=== PATIENT | male | born 1940 | race Two or more races ===

== ENCOUNTER 2018-10-08 00:31 | Inpatient (IN) | payer MEDICARE, OTHER ==
[2018-10-08] MEDS ORDERED: Permethrin 5% CREAM TOP ONE (02:11)
[2018-10-08] MEDS ORDERED: Permethrin 1% Kit 59 ML BOTTLE TOP ONE (02:12)
--- NOTE | 2018-10-08 02:48 | ED PDOC ---
HPI: Altered Mental Status Time Seen by Provider: 10/08/18 00:39 Chief Complaint (Nursing): Altered Mental Status Chief Complaint (Provider): Altered Mental Status History Per: Patient History/Exam Limitations: Clinical Condition Associated Symptoms: Confused Additional Complaint(s): 78 y/o male brought in by EMS for evaluation of AMS. [place] [address] [place]. He appeared confused and disoriented although he can tell his name and date of . Patient lived in [place] with his daughter. A bus ticket was found that tells he took a bus from [place]. He is unable to get recollection of events. Patient is in poor state of hygiene and offers no complaints at this time. Patient is unable to provide history due to clinical condition. PMD: unknown Past Medical History Reviewed: Historical Data, Nursing Documentation, Vital Signs Vital Signs: Last Vital Signs Temp 98 F 10/08/18 00:33 Pulse 109 H 10/08/18 00:33 Resp 18 10/08/18 00:33 BP 128/70 10/08/18 00:33 Pulse Ox 98 10/08/18 00:33 - Medical History Other PMH: Unknown - Surgical History Other surgeries: Unknown - Family History Family History: States: Unknown Family Hx - Social History Current smoker - smoking cessation education provided: No (Unknown) Alcohol: None (Unknown) Drugs: Denies (Unknown) - Allergies Allergies/Adverse Reactions: Allergies Allergy/AdvReac Type Severity Reaction Status Date / Time Unobtainable Allergy Verified 10/08/18 00:33 Review of Systems Review Of Systems: ROS cannot be obtained secondary to pt's inabilty to answer questions. Physical Exam - Reviewed Nursing Documentation Reviewed: Yes Vital Signs Reviewed: Yes - Physical Exam Appears: Positive for: Non-toxic, No Acute Distress (in poor state of hygiene) Head Exam: Positive for: ATRAUMATIC, NORMOCEPHALIC Skin: Positive for: Normal Color, Warm, Dry Eye Exam: Positive for: Normal appearance, EOMI, PERRL Neck: Positive for: Normal, Painless ROM, Supple Cardiovascular/Chest: Positive for: Regular Rate, Rhythm. Negative for: Murmur Respiratory: Positive for: Normal Breath Sounds. Negative for: Wheezing Gastrointestinal/Abdominal: Positive for: Normal Exam, Soft. Negative for: Tenderness Back: Positive for: Normal Inspection. Negative for: L CVA Tenderness, R CVA Tenderness Extremity: Positive for: Normal ROM. Negative for: Tenderness, Pedal Edema Neurologic/Psych: Positive for: Alert, Oriented (x1 to person) - Laboratory Results Result Diagrams: 10/08/18 04:35 10/08/18 04:35 - ECG O2 Sat by Pulse Oximetry: 98 (RA) Pulse Ox Interpretation: Normal Medical Decision Making Medical Decision Makin 78 y/o male brought in for AMS --Labs --EKG --CT cervical spine --CT head --Eimite ordered for body lice treatment --senior care reports patient has bed bugs. --HPD contacted to assess further family contact info 0217 CT head findings: Right frontal subgaleal soft tissue hematoma. There is normal configuration of sella turcica. There are no intra or extra- axial collections. There is no mass effect or midline shift. There is no evidence of hematoma formation. No hydrocephalus is present. The ventricles are symmetrical. No abnormal calcifications are present. There is diffuse age-appropriate cerebellar and cerebral atrophy with proportion ally dilated ventricles and cortical sulci. There are bilateral periventricular and subcortical white matter hypolucencies compatible with mild chronic microvascular disease. Otherwise, no significant focal abnormalities are seen either in the posterior fossa or supratentorial compartment. IMPRESSION: 1. Age-appropriate cerebellar and cerebral atrophy. 2. Mild chronic microvascular disease. 3. No evidence of acute intracranial pathology. 0220 CT cervical spine Findings: Mild osteopenia of the bones. Straightening of the cervical lordosis, probably muscular spasm and pain. Grade 1 anterolisthesis of C2 on C3. There are diffuse spondylotic changes. Findings are demonstrated by disc space narrowing, osteophyte formation and degenerative endplate changes. Facet joint arthropathy is noted. No fracture or dislocation is seen. No aggressive bone lesion is noted. Moderate multilevel degenerative disc disease more prominent from C3-C7. Impression: Spondylosis. Multilevel facet joint arthropathy. No acute bone pathology. 0609 Labs reviewed and show no significant clinical abnormality with exception to urine indicative of UTI. Patient still appears confused, unclear if this is his baseline. Patient likely has baseline dementia. D contacted [place] police for family contact information but were not able to obtain any info. Patient will be admitted as he is unsafe to be discharged home. Case referred to Dr. Forde. Diagnosis is AMS and social hold. Scribe Attestation: Documented by Altagracia Rivera, acting as a scribe for Magan Martinez MD. Provider Scribe Attestation: All medical record entries made by the Scribe were at my direction and personally dictated by me. I have reviewed the chart and agree that the record accurately reflects my personal performance of the history, physical exam, medical decision making, and the department course for this patient. I have also personally directed, reviewed, and agree with the discharge instructions and disposition. Disposition - Clinical Impression Clinical Impression: Altered mental status - Patient ED Disposition Is Patient to be Admitted: Yes Discussed With : Mindy Bonner Seman - Disposition Disposition Time: 06:09 Condition: FAIR - Pt Status Changed To: Hospital Disposition Of: Inpatient - Admit Certification Admit to Inpatient:: After my assessment, the patient will require ho spitalization for at least two midnights. This is because of the severity of symptoms shown, intensity of services needed, and/or the medical risk in this patient being treated as an outpatient.
[2018-10-08 04:54] LABS: PROTHROMBIN TIME 11.8 Seconds (9.8-13.1)
[2018-10-08 04:57] LABS: PARTIAL THROMBOPLASTIN TIME 27.5 Seconds (25.6-37.1)
[2018-10-08 04:59] LABS: ALB/GLOB RATIO 0.9 (1.0-2.1); ALBUMIN 3.4 g/dL (3.5-5.0); CALCIUM 8.7 mg/dL (8.4-10.2)
[2018-10-08 05:13] LABS: TROPONIN I 0.025 ng/mL (0.00-0.120)
[2018-10-08 05:15] LABS: BARBITURATES, UR NEGATIVE (NEGATIVE); BENZODIAZEPINES, UR NEGATIVE (NEGATIVE); OPIATES, UR NEGATIVE (NEGATIVE); PHENCYCLIDINE, UR NEGATIVE (NEGATIVE)
[2018-10-08 05:28] LABS: BASO % 0.5 % (0.0-2.0); EOS % 0.4 % (0.0-4.0); HEMOGLOBIN 10.1 g/dL (12.0-18.0); LYMPH % 20.5 % (20.0-40.0); MEAN CELL VOLUME 89.7 fl (80.0-94.0); MEAN CORPUSCULAR HEMOGLOBIN 29.8 pg (27.0-31.0); MEAN CORPUSCULAR HGB CONC 33.2 g/dL (33.0-37.0); MEAN PLATELET VOLUME 7.2 fl (7.2-11.7); MONO # 0.5 K/uL (0.0-0.8); MONO % 11.5 % (0.0-10.0); NEUT # 3.1 K/uL (1.8-7.0); NEUT % 67.1 % (50.0-75.0); NRBC % 0.1 % (0.0-0.0); RBC 3.41 Mil/uL (4.40-5.90); RED CELL DISTRIBUTION WIDTH 17.5 % (11.5-14.5); WHITE BLOOD COUNT 4.6 K/uL (4.8-10.8)
--- NOTE | 2018-10-08 07:08 | CP.PCM.HP ---
History of Present Illness - History of Present Illness History of Present Illness: CC: AMS, and Wandering History of Present Illness: History from the Chart and ER Attending A 78 y/o male brought in by EMS for evaluation of AMS. [place] [address] [place]. He appeared confused and disoriented although he can tell his name and date of . Patient lived in [place] with his daughter. A bus ticket was found that tells he took a bus from [place]. He is unable to get recollection of events. Patient is in poor state of hygiene and offers no complaints at this time. Present on Admission - Present on Admission Any Indicators Present on Admission: No Review of Systems - Review of Systems All systems: reviewed and no additional remarkable complaints except Review of Systems: as pr HPI Past Patient History - Past Medical History & Family History Past Medical History?: No Past Family History: Reviewed and not pertinent - Past Social History Smoking Status: Never Smoked Alcohol: Social (Unknown) Drugs: Cannabis - PSYCHIATRIC Hx Substance Use: (Unknown) - SURGICAL HISTORY Hx Surgeries: (Unknown) - ANESTHESIA Hx Anesthesia: (Unknown) Meds Allergies/Adverse Reactions: Allergies Allergy/AdvReac Type Severity Reaction Status Date / Time Unobtainable Allergy Verified 10/08/18 00:33 Physical Exam - Constitutional Appears: In Acute Distress, Unkempt, Chronically Ill - Head Exam Head Exam: ATRAUMATIC, NORMAL INSPECTION, NORMOCEPHALIC - Eye Exam Eye Exam: EOMI, Normal appearance, PERRL Pupil Exam: NORMAL ACCOMODATION, PERRL - ENT Exam ENT Exam: Mucous Membranes Moist, Normal Exam - Neck Exam Neck exam: Positive for: Normal Inspection - Respiratory Exam Respiratory Exam: Clear to Auscultation Bilateral, NORMAL BREATHING PATTERN - Cardiovascular Exam Cardiovascular Exam: REGULAR RHYTHM, +S1, +S2 - GI/Abdominal Exam GI & Abdominal Exam: Normal Bowel Sounds, Soft. absent: Tenderness - Extremities Exam Additional comments: Unkept - Back Exam Back exam: NORMAL INSPECTION - Neurological Exam Neurological exam: Abnormal Gait, Altered, CN II-XII Intact, Reflexes Normal - Psychiatric Exam Psychiatric exam: Flat Affect, Normal Affect, Normal Mood - Skin Skin Exam: Dry, Intact, Normal Color, Warm Results - Vital Signs Recent Vital Signs: Last Vital Signs Temp 98 F 10/08/18 00:33 Pulse 109 H 10/08/18 00:33 Resp 18 10/08/18 00:33 BP 128/70 10/08/18 00:33 Pulse Ox 98 10/08/18 06:49 - Labs Result Diagrams: 10/10/18 05:15 10/10/18 05:15 Labs: Laboratory Results - last 24 hr 10/08/18 10/08/18 10/08/18 00:35 04:17 04:35 WBC RBC Hgb Hct MCV MCH MCHC RDW Plt Count MPV Neut % (Auto) Lymph % (Auto) [place] % (Auto) Eos % (Auto) Baso % (Auto) Neut # (Auto) Lymph # (Auto) [place] # (Auto) Eos # (Auto) Baso # (Auto) PT INR APTT Sodium 138 Potassium 4.5 Chloride 102 Carbon Dioxide 22 Anion Gap 19 BUN 22 H Creatinine 1.6 H Est GFR ( Amer) 51 Est GFR (Non-Af Amer) 42 POC Glucose (mg/dL) 95 61 L Random Glucose 77 Lactic Acid Calcium 8.7 Total Bilirubin 0.5 AST 42 ALT 18 L Alkaline Phosphatase 143 H Troponin I 0.0250 NT-Pro-B Natriuret Pep 505 Total Protein 7.4 Albumin 3.4 L Globulin 4.0 H Albumin/Globulin Ratio 0.9 L Urine Opiates Screen Urine Methadone Screen Ur Barbiturates Screen Ur Phencyclidine Scrn Ur Amphetamines Screen U Benzodiazepines Scrn U Oth Cocaine Metabols U Cannabinoids Screen Alcohol, Quantitative 33 H 10/08/18 10/08/18 10/08/18 04:35 04:35 04:35 WBC 4.6 L RBC 3.41 L Hgb 10.1 L Hct 30.6 L MCV 89.7 MCH 29.8 MCHC 33.2 RDW 17.5 H Plt Count 278 MPV 7.2 Neut % (Auto) 67.1 Lymph % (Auto) 20.5 [place] % (Auto) 11.5 H Eos % (Auto) 0.4 Baso % (Auto) 0.5 Neut # (Auto) 3.1 Lymph # (Auto) 1.0 [place] # (Auto) 0.5 Eos # (Auto) 0.0 Baso # (Auto) 0.0 PT 11.8 INR 1.0 APTT 27.5 Sodium Potassium Chloride Carbon Dioxide Anion Gap BUN Creatinine Est GFR ( Amer) Est GFR (Non-Af Amer) POC Glucose (mg/dL) Random Glucose Lactic Acid 1.9 Calcium Total Bilirubin AST ALT Alkaline Phosphatase Troponin I NT-Pro-B Natriuret Pep Total Protein Albumin Globulin Albumin/Globulin Ratio Urine Opiates Screen Urine Methadone Screen Ur Barbiturates Screen Ur Phencyclidine Scrn Ur Amphetamines Screen U Benzodiazepines Scrn U Oth Cocaine Metabols U Cannabinoids Screen Alcohol, Quantitative 10/08/18 04:45 WBC RBC Hgb Hct MCV MCH MCHC RDW Plt Count MPV Neut % (Auto) Lymph % (Auto) [place] % (Auto) Eos % (Auto) Baso % (Auto) Neut # (Auto) Lymph # (Auto) [place] # (Auto) Eos # (Auto) Baso # (Auto) PT INR APTT Sodium Potassium Chloride Carbon Dioxide Anion Gap BUN Creatinine Est GFR ( Amer) Est GFR (Non-Af Amer) POC Glucose (mg/dL) Random Glucose Lactic Acid Calcium Total Bilirubin AST ALT Alkaline Phosphatase Troponin I NT-Pro-B Natriuret Pep Total Protein Albumin Globulin Albumin/Globulin Ratio Urine Opiates Screen Negative Urine Methadone Screen Negative Ur Barbiturates Screen Negative Ur Phencyclidine Scrn Negative Ur Amphetamines Screen Negative U Benzodiazepines Scrn Negative U Oth Cocaine Metabols Negative U Cannabinoids Screen Positive H Alcohol, Quantitative - EKG Data EKG Interpreted by: Myself EKG shows normal: Sinus rhythm Rate: Normal - Impressions Impression: with Frequent PVCs - Imaging and Cardiology CT scan - head Status: Report reviewed by me Additional comment: Date of service: 10/08/2018 PROCEDURE: CT HEAD WITHOUT CONTRAST. HISTORY: headache COMPARISON: None available. TECHNIQUE: Axial computed tomography images were obtained through the head/brain without intravenous contrast. Radiation dose: Total exam DLP = 875.79 mGy-cm. This CT exam was performed using one or more of the following dose reduction techniques: Automated exposure control, adjustment of the mA and/or kV according to patient size, and/or use of iterative reconstruction technique. FINDINGS: HEMORRHAGE: No intracranial hemorrhage. BRAIN: No mass effect or edema. Periventricular white matter ischemic disease. Mild atrophy. VENTRICLES: Unremarkable. No hydrocephalus. CALVARIUM: Unremarkable. PARANASAL SINUSES: Unremarkable as visualized. No significant inflammatory changes. MASTOID AIR CELLS: Unremarkable as visualized. No inflammatory changes. OTHER FINDINGS: None. IMPRESSION: No acute hemorrhage. Cervical CT Spine: Status: Report reviewed by me Additional comment: Date of service: 10/08/2018 PROCEDURE: CT Cervical Spine without contrast HISTORY: neck injury COMPARISON: None available. TECHNIQUE: Axial computed tomography images were obtained of the cervical spine without the use of intravenous contrast. Coronal and sagittal reformatted images were created and reviewed. Radiation dose: Total exam DLP = 347.23 mGy-cm. This CT exam was performed using one or more of the following dose reduction techniques: Automated exposure control, adjustment of the mA and/or kV according to patient size, and/or use of iterative reconstruction technique. FINDINGS: VERTEBRAE: No fracture. Normal alignment. No destructive bony lesion. DISCS/SPINAL CANAL/NEURAL FORAMINA: Multilevel severe degenerative spondylosis and disc disease. PARASPINAL SOFT TISSUES: Unremarkable. OTHER FINDINGS: None. IMPRESSION: No acute fracture. Chest x-ray Status: Report reviewed by me Additional comment: Date of service: 10/08/2018 HISTORY: admit COMPARISON: No prior. FINDINGS: LUNGS: No active pulmonary disease. PLEURA: No significant pleural effusion identified, no pneumothorax apparent. CARDIOVASCULAR: No aortic atherosclerotic calcification present. Normal cardiac size. No pulmonary vascular congestion. OSSEOUS STRUCTURES: No significant abnormalities. VISUALIZED UPPER ABDOMEN: Normal. OTHER FINDINGS: None. IMPRESSION: No active disease. Assessment & Plan (1) Altered mental status Status: Acute Priority: High (2) Anemia Status: Acute Priority: Medium (3) Cannabis abuse Status: Acute Priority: Medium (4) Hypertension Status: Chronic Priority: Low - Assessment and Plan (Free Text) Plan: IVF Neuro-check Psych Consult Lovenox SW Consult
--- NOTE | 2018-10-08 07:43 | CT ---
Date of service: 10/08/2018 PROCEDURE: CT HEAD WITHOUT CONTRAST. HISTORY: headache COMPARISON: None available. TECHNIQUE: Axial computed tomography images were obtained through the head/brain without intravenous contrast. Radiation dose: Total exam DLP = 875.79 mGy-cm. This CT exam was performed using one or more of the following dose reduction techniques: Automated exposure control, adjustment of the mA and/or kV according to patient size, and/or use of iterative reconstruction technique. FINDINGS: HEMORRHAGE: No intracranial hemorrhage. BRAIN: No mass effect or edema. Periventricular white matter ischemic disease. Mild atrophy. VENTRICLES: Unremarkable. No hydrocephalus. CALVARIUM: Unremarkable. PARANASAL SINUSES: Unremarkable as visualized. No significant inflammatory changes. MASTOID AIR CELLS: Unremarkable as visualized. No inflammatory changes. OTHER FINDINGS: None. IMPRESSION: No acute hemorrhage.
--- NOTE | 2018-10-08 07:44 | CT ---
Date of service: 10/08/2018 PROCEDURE: CT Cervical Spine without contrast HISTORY: neck injury COMPARISON: None available. TECHNIQUE: Axial computed tomography images were obtained of the cervical spine without the use of intravenous contrast. Coronal and sagittal reformatted images were created and reviewed. Radiation dose: Total exam DLP = 347.23 mGy-cm. This CT exam was performed using one or more of the following dose reduction techniques: Automated exposure control, adjustment of the mA and/or kV according to patient size, and/or use of iterative reconstruction technique. FINDINGS: VERTEBRAE: No fracture. Normal alignment. No destructive bony lesion. DISCS/SPINAL CANAL/NEURAL FORAMINA: Multilevel severe degenerative spondylosis and disc disease. PARASPINAL SOFT TISSUES: Unremarkable. OTHER FINDINGS: None. IMPRESSION: No acute fracture.
--- NOTE | 2018-10-08 08:11 | RAD ---
Date of service: 10/08/2018 HISTORY: admit COMPARISON: No prior. FINDINGS: LUNGS: No active pulmonary disease. PLEURA: No significant pleural effusion identified, no pneumothorax apparent. CARDIOVASCULAR: No aortic atherosclerotic calcification present. Normal cardiac size. No pulmonary vascular congestion. OSSEOUS STRUCTURES: No significant abnormalities. VISUALIZED UPPER ABDOMEN: Normal. OTHER FINDINGS: None. IMPRESSION: No active disease.
[2018-10-08] MEDS: Sodium Chloride 0.9% 1,000 ML IV SCH ×2 (13:49→22:25)
--- NOTE | 2018-10-08 23:25 | CARD ---
APPROVED REPORT Date of service: 10/08/2018 EKG Measurement Heart [id number] <Conclusion> Sinus rhythm with frequent premature ventricular complexes Low voltage QRS Borderline ECG
[2018-10-09 07:03] LABS: HEMOGLOBIN 8.8 g/dL (12.0-18.0); MEAN CELL VOLUME 89.3 fl (80.0-94.0); MEAN CORPUSCULAR HEMOGLOBIN 29.9 pg (27.0-31.0); MEAN CORPUSCULAR HGB CONC 33.5 g/dL (33.0-37.0); RBC 2.95 Mil/uL (4.40-5.90); WHITE BLOOD COUNT 3.8 K/uL (4.8-10.8)
[2018-10-09 07:36] LABS: CALCIUM 8.1 mg/dL (8.4-10.2)
[2018-10-09] MEDS ORDERED: Enoxaparin 40 mg Syringe SC SCH (09:00)
[2018-10-09] MEDS: Enoxaparin 30 mg Syringe SC SCH (09:22)
[2018-10-09] MEDS: Sodium Chloride 0.9% 1,000 ML IV SCH ×2 (11:42→18:36)
--- NOTE | 2018-10-09 21:11 | CP.PCM.PN ---
Subjective - Date & Time of Evaluation Date of Evaluation: 10/09/18 Time of Evaluation: 16:20 Objective - Vital Signs/Intake and Output Vital Signs (last 24 hours): Temp Pulse Resp BP Pulse Ox 98.7 F 69 20 122/68 99 10/09/18 16:59 10/09/18 16:59 10/09/18 16:59 10/09/18 16:59 10/09/18 16:59 - Medications Medications: Current Medications Enoxaparin Sodium (Lovenox) 30 mg SC DAILY [facility]; Protocol Last Admin: 10/09/18 09:22 Dose: 30 mg Sodium Chloride (Sodium Chloride 0.9%) 1,000 mls @ 100 mls/hr IV .Q10H [facility] Stop: 10/10/18 17:57 Last Admin: 10/09/18 18:36 Dose: 100 mls/hr - Labs Labs: 10/09/18 06:00 10/09/18 06:00 PT 11.8 Seconds (9.8-13.1) 10/08/18 04:35 INR 1.0 10/08/18 04:35 APTT 27.5 Seconds (25.6-37.1) 10/08/18 04:35 Assessment and Plan (1) Altered mental status Status: Acute (2) Anemia Status: Acute (3) Cannabis abuse Status: Acute
[2018-10-10] MEDS: Sodium Chloride 0.9% 1,000 ML IV SCH ×2 (04:31→17:56)
[2018-10-10 06:26] LABS: BASO % 0.6 % (0.0-2.0); EOS % 0.7 % (0.0-4.0); HEMOGLOBIN 8.9 g/dL (12.0-18.0); LYMPH # 0.7 K/uL (1.0-4.3); MEAN CORPUSCULAR HEMOGLOBIN 30.3 pg (27.0-31.0); MEAN CORPUSCULAR HGB CONC 33.6 g/dL (33.0-37.0); MEAN PLATELET VOLUME 7.3 fl (7.2-11.7); MONO # 0.3 K/uL (0.0-0.8); MONO % 10.4 % (0.0-10.0); NEUT # 2.1 K/uL (1.8-7.0); NEUT % 66.3 % (50.0-75.0); RBC 2.95 Mil/uL (4.40-5.90); RED CELL DISTRIBUTION WIDTH 17.2 % (11.5-14.5); WHITE BLOOD COUNT 3.2 K/uL (4.8-10.8)
[2018-10-10 06:50] LABS: CALCIUM 8.2 mg/dL (8.4-10.2)
[2018-10-10] MEDS: Enoxaparin 30 mg Syringe SC SCH (09:06)
--- NOTE | 2018-10-10 23:21 | CP.PCM.PCO ---
Physician Communication Note - Physician Communication Note Physician Communication Note: bp systolic 160s. start amlodipine 2.5 mg once.
--- NOTE | 2018-10-11 02:03 | CP.PCM.PN ---
Subjective - Date & Time of Evaluation Date of Evaluation: 10/10/18 Time of Evaluation: 10:00 Objective - Vital Signs/Intake and Output Vital Signs (last 24 hours): Temp Pulse Resp BP Pulse Ox 98.1 F 76 20 161/98 H 100 10/10/18 23:35 10/10/18 23:48 10/10/18 23:35 10/10/18 23:48 10/10/18 23:35 - Medications Medications: Current Medications Enoxaparin Sodium (Lovenox) 30 mg SC DAILY [facility]; Protocol Last Admin: 10/10/18 09:06 Dose: 30 mg - Labs Labs: 10/10/18 05:15 10/10/18 05:15 PT 11.8 Seconds (9.8-13.1) 10/08/18 04:35 INR 1.0 10/08/18 04:35 APTT 27.5 Seconds (25.6-37.1) 10/08/18 04:35 Assessment and Plan (1) Altered mental status Status: Acute (2) Anemia Status: Acute (3) Cannabis abuse Status: Acute
[2018-10-11] MEDS: Enoxaparin 30 mg Syringe SC SCH (09:03)
--- NOTE | 2018-10-12 07:55 | CP.PCM.CON ---
History of Present Illness - History of Present Illness History of Present Illness: Psychiatry consult called to evaluate for capacity CC: "Why are you asking me so many questions?" HPI: 78 yo male w/ unknown past medical and psychiatric history, BIB EMS for evaluation of AMS after he was found [address] [place] [address]. Patient is currently not cooperative with interview. He is able to state his n annetta and that he is in a hospital, but does not know the date or which hospital. He does not know the current president. He is unable to provide a home address, only states that he lives with his daughter. Patient was not able to state why he is in the hospital, his past medical history or if he is taking any medications. Patient refused to answer further questions and was irritable that health underwriter was asking him questions. PMHx/PPHx: Unclear history, patient is a poor historian ALL: No listed allergies to medications SHx: Unclear social history, patient may be homeless or may reside with his daughter Impression: 78 yo male w/ likely major neurocognitive impairment vs acute delirium. -Patient may benefit from neuropsych testing from psychology senior science consultant -Patient does not have capacity to make medical decisions at this time. Past Patient History - Past Medical History & Family History Past Medical History?: No - Past Social History Smoking Status: Never Smoked - MUSCULOSKELETAL/RHEUMATOLOGICAL Hx Falls: No - PSYCHIATRIC Hx Substance Use: No - SURGICAL HISTORY Hx Surgeries: No (Unknown) - ANESTHESIA Hx Anesthesia: No (Unknown) Meds Allergies/Adverse Reactions: Allergies Allergy/AdvReac Type Severity Reaction Status Date / Time Unobtainable Allergy Verified 10/08/18 00:33 - Medications Medications: Current Medications Enoxaparin Sodium (Lovenox) 30 mg SC DAILY [facility]; Protocol Last Admin: 10/11/18 09:03 Dose: Not Given Results - Vital Signs Recent Vital Signs: Last Vital Signs Temp 97.6 F 10/11/18 23:42 Pulse 62 10/12/18 05:44 Resp 20 10/11/18 23:42 BP 132/78 10/12/18 05:44 Pulse Ox 99 10/11/18 23:42 - Labs Result Diagrams: 10/10/18 05:15 10/10/18 05:15
[2018-10-12] MEDS: Enoxaparin 30 mg Syringe SC SCH (08:28)
--- NOTE | 2018-10-13 01:32 | CP.PCM.PN ---
Subjective - Date & Time of Evaluation Date of Evaluation: 10/11/18 Time of Evaluation: 17:15 Objective - Vital Signs/Intake and Output Vital Signs (last 24 hours): Temp Pulse Resp BP Pulse Ox 97 F L 72 18 126/77 99 10/12/18 15:58 10/12/18 15:58 10/12/18 15:58 10/12/18 15:58 10/12/18 15:58 - Medications Medications: Current Medications Enoxaparin Sodium (Lovenox) 30 mg SC DAILY [facility]; Protocol Last Admin: 10/12/18 08:28 Dose: Not Given - Labs Labs: 10/10/18 05:15 10/10/18 05:15 PT 11.8 Seconds (9.8-13.1) 10/08/18 04:35 INR 1.0 10/08/18 04:35 APTT 27.5 Seconds (25.6-37.1) 10/08/18 04:35 Assessment and Plan (1) Altered mental status Status: Acute (2) Anemia Status: Acute (3) Cannabis abuse Status: Acute
--- NOTE | 2018-10-13 01:33 | CP.PCM.PN ---
Subjective - Date & Time of Evaluation Date of Evaluation: 10/12/18 Time of Evaluation: 13:30 Objective - Vital Signs/Intake and Output Vital Signs (last 24 hours): Temp Pulse Resp BP Pulse Ox 97 F L 72 18 126/77 99 10/12/18 15:58 10/12/18 15:58 10/12/18 15:58 10/12/18 15:58 10/12/18 15:58 - Medications Medications: Current Medications Enoxaparin Sodium (Lovenox) 30 mg SC DAILY [facility]; Protocol Last Admin: 10/12/18 08:28 Dose: Not Given - Labs Labs: 10/10/18 05:15 10/10/18 05:15 PT 11.8 Seconds (9.8-13.1) 10/08/18 04:35 INR 1.0 10/08/18 04:35 APTT 27.5 Seconds (25.6-37.1) 10/08/18 04:35 Assessment and Plan (1) Altered mental status Status: Acute (2) Anemia Status: Acute (3) Cannabis abuse Status: Acute
[2018-10-13] MEDS: Enoxaparin 30 mg Syringe SC SCH (09:43)
[2018-10-13 16:01] VITALS: BP 128/79; PULSE 73; RESP 20; TEMP 98.8; O2SAT 100
--- NOTE | 2018-10-13 19:47 | CP.PCM.DIS ---
Provider - Provider Date of Admission: 10/08/18 05:14 Attending physician: Mindy Garcia MD Consults: 10/08/18 20:05 Social Work Referral Routine Comment: homelessness Physician Instructions: Reason For Exam: homelessness 10/11/18 14:06 Psychiatry Consult Routine Comment: Consulting Provider: Gabby Kearns Consulting Physician: Gabby Kearns Reason for Consult: capacity 10/12/18 08:37 Psychology Consult Routine Comment: Consulting Provider: Sandra Randolph Consulting Physician: Sandra Randolph Reason for Consult: Evaluate neurocognitive function Time Spent in preparation of Discharge (in minutes): 35 Diagnosis - Discharge Diagnosis (1) Altered mental status Status: Acute Priority: High (2) Anemia Status: Acute Priority: Medium (3) Cannabis abuse Status: Acute Priority: Medium (4) Hypertension Status: Chronic Priority: Low Hospital Course - Lab Results Lab Results: Most Recent Lab Values WBC 3.2 K/uL (4.8-10.8) L 10/10/18 05:15 RBC 2.95 Mil/uL (4.40-5.90) L 10/10/18 05:15 Hgb 8.9 g/dL (12.0-18.0) L 10/10/18 05:15 Hct 26.6 % (35.0-51.0) L 10/10/18 05:15 MCV 90.0 fl (80.0-94.0) 10/10/18 05:15 MCH 30.3 pg (27.0-31.0) 10/10/18 05:15 MCHC 33.6 g/dL (33.0-37.0) 10/10/18 05:15 RDW 17.2 % (11.5-14.5) H 10/10/18 05:15 Plt Count 252 K/uL (130-400) 10/10/18 05:15 MPV 7.3 fl (7.2-11.7) 10/10/18 05:15 Neut % (Auto) 66.3 % (50.0-75.0) 10/10/18 05:15 Lymph % (Auto) 22.0 % (20.0-40.0) 10/10/18 05:15 [place] % (Auto) 10.4 % (0.0-10.0) H 10/10/18 05:15 Eos % (Auto) 0.7 % (0.0-4.0) 10/10/18 05:15 Baso % (Auto) 0.6 % (0.0-2.0) 10/10/18 05:15 Neut # (Auto) 2.1 K/uL (1.8-7.0) 10/10/18 05:15 Lymph # (Auto) 0.7 K/uL (1.0-4.3) L 10/10/18 05:15 [place] # (Auto) 0.3 K/uL (0.0-0.8) 10/10/18 05:15 Eos # (Auto) 0.0 K/uL (0.0-0.7) 10/10/18 05:15 Baso # (Auto) 0.0 K/uL (0.0-0.2) 10/10/18 05:15 PT 11.8 Seconds (9.8-13.1) 10/08/18 04:35 INR 1.0 10/08/18 04:35 APTT 27.5 Seconds (25.6-37.1) 10/08/18 04:35 Sodium 137 mmol/l (132-148) 10/10/18 05:15 Potassium 4.1 MMOL/L (3.6-5.0) 10/10/18 05:15 Chloride 104 mmol/L (98-107) 10/10/18 05:15 Carbon Dioxide 25 mmol/L (22-30) 10/10/18 05:15 Anion Gap 12 (10-20) 10/10/18 05:15 BUN 16 mg/dl (9-20) 10/10/18 05:15 Creatinine 1.4 mg/dl (0.8-1.5) 10/10/18 05:15 Est GFR ( Amer) 59 10/10/18 05:15 Est GFR (Non-Af Amer) 49 10/10/18 05:15 POC Glucose (mg/dL) 126 mg/dL (65-110) H 10/08/18 07:00 Random Glucose 87 mg/dL (75-110) 10/10/18 05:15 Lactic Acid 1.9 MMOL/L (0.7-2.1) 10/08/18 04:35 Calcium 8.2 mg/dL (8.4-10.2) L 10/10/18 05:15 Total Bilirubin 0.5 mg/dl (0.2-1.3) 10/08/18 04:35 AST 42 U/L (17-59) 10/08/18 04:35 ALT 18 U/L (21-72) L 10/08/18 04:35 Alkaline Phosphatase 143 U/L (38-126) H 10/08/18 04:35 Troponin I 0.0250 ng/mL (0.00-0.120) 10/08/18 04:35 NT-Pro-B Natriuret Pep 505 pg/ml (0-900) 10/08/18 04:35 Total Protein 7.4 G/DL (6.3-8.2) 10/08/18 04:35 Albumin 3.4 g/dL (3.5-5.0) L 10/08/18 04:35 Globulin 4.0 gm/dL (2.2-3.9) H 10/08/18 04:35 Albumin/Globulin Ratio 0.9 (1.0-2.1) L 10/08/18 04:35 Urine Opiates Screen Negative (NEGATIVE) 10/08/18 04:45 Urine Methadone Screen Negative (NEGATIVE) 10/08/18 04:45 Ur Barbiturates Screen Negative (NEGATIVE) 10/08/18 04:45 Ur Phencyclidine Scrn Negative (NEGATIVE) 10/08/18 04:45 Ur Amphetamines Screen Negative (NEGATIVE) 10/08/18 04:45 U Benzodiazepines Scrn Negative (NEGATIVE) 10/08/18 04:45 U Oth Cocaine Metabols Negative (NEGATIVE) 10/08/18 04:45 U Cannabinoids Screen Positive (NEGATIVE) H 10/08/18 04:45 Alcohol, Quantitative 33 mg/dl (0-10) H 10/08/18 04:35 Discharge Exam - Head Exam Head Exam: ATRAUMATIC, NORMAL INSPECTION, NORMOCEPHALIC Discharge Plan - Follow Up Plan Condition: FAIR Disposition: REHAB FACILITY/REHAB UNIT Instructions: Altered Mental Status (DC) Additional Instructions: Elopement risk. Referrals: [facility] [Outside] Mindy Garcia MD [Staff Provider] -
--- NOTE | 2018-10-14 23:00 | PQF ---
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 Please specify the underlying cause Such as: -- Due to medication -- Cardiac condition -- Electrolyte/metabolic imbalance -- Infectious process -- Neurologic condition -- Psychiatric condition -- Respiratory condition -- Other, please specify The patient's Clinical Indicators include: Please clarify the etiology of pt.'s AMS if known. Query created by: Brittany Walls on 10/14/2018 11:59 AM Electronically signed by: Mindy Garcia MD 10/14/2018 10:58 PM
== END 2018-10-13 17:10 | DRG 884 ==
LOC: H.ER 00:31 → H.ERHOLD 05:14 → H.MEDSURG1 09:41
PROVIDERS: ADMIT Internal Medicine; ATTEND Internal Medicine
DX: F03.90 Unspecified dementia, unspecified severity, without behavioral disturbance, psychotic disturbance, mood disturbance, and anxiety (principal); F12.10 Cannabis abuse, uncomplicated; R41.82 Altered mental status, unspecified; I10 Essential (primary) hypertension; D64.9 Anemia, unspecified; I49.3 Ventricular premature depolarization; M43.12 Spondylolisthesis, cervical region; M85.80 Other specified disorders of bone density and structure, unspecified site; Z91.83 Wandering in diseases classified elsewhere